=== PATIENT | female | born 1960 | race Caucasian/White ===

== ENCOUNTER 2023-08-31 01:43 | Day surgery (SDC) | payer OTHER, SELFPAY ==
[2023-08-20 11:02] VITALS: BMI 37.3
--- NOTE | 2023-08-28 09:30 | SUR.PREOP ---
Patient called regarding upcoming procedure. Message left on patient's voicemail regarding preop instructions, appointment times, and procedure prep.
--- NOTE | 2023-08-30 12:20 | PM.HPGS ---
History of Present Illness History of Present Illness Consent: Risks, benefits, and alternatives have been discussed and questions answered. Patient agrees to proceed with procedure. Chief complaint: dysphagia Narrative: Herlinda Benson is a 63 year old female Referred for endoscopy because of chronic dysphagia for solid food. Review of Systems Review of Systems: All systems reviewed & are unremarkable except as noted in HPI and below PMFSH Social History Social History Smoking status: Never smoker Substance use type: does not use Living arrangements: alone Meds Home Medications and Allergies Home Medications Medication Instructions Recorded Confirmed Type brexpiprazole 1 mg tablet (Rexulti) 1 mg PO DAILY 08/20/23 08/31/23 History budesonide 160 mcg-glycopyr 9 1 inh inhalation BID PRN Shortness 08/20/23 08/31/23 History mcg-formot 4.8 mcg/actuation HFA Of Breath inhaler (Breztri Aerosphere) levothyroxine 100 mcg tablet 100 mcg PO DAILY 08/20/23 08/31/23 History lisinopril 10 mg tablet 10 mg PO DAILY 08/20/23 08/31/23 History meloxicam 7.5 mg tablet 15 mg PO BID PRN Pain 08/20/23 08/31/23 History rizatriptan 10 mg disintegrating 10 mg PO DAILY 08/20/23 08/31/23 History tablet semaglutide (weight loss) 2.4 2.5 mg subcut WEEKLY 08/20/23 08/31/23 History mg/0.75 mL subcutaneous pen injector (Wegovy) trazodone 50 mg tablet 50 mg PO HS 08/20/23 08/31/23 History Allergies Allergy/AdvReac Type Severity Reaction Status Date / Time Sulfa (Sulfonamide Allergy Swelling Verified 08/31/23 11:56 Antibiotics) Exam Const: General: alert Orientation/consciousness: patient oriented x3 Resp: Auscultation: clear to auscultation bilaterally Cardio: Rhythm: regular rhythm GI: GI Palp: Yes Soft to palpation and No Tenderness to palpation present (GI) Neuro: General: patient oriented x3 Assessment and Plan Assessment and plan (1) Dysphagia: Code(s): R13.10 - Dysphagia, unspecified Status: Acute Assessment and Plan: EGD with possible biopsy or dilatation or cautery.
[2023-08-31 11:57] VITALS: BP 128/64; PULSE 93; RESP 16; TEMP 36.2; O2SAT 100
[2023-08-31] MEDS: LACTATED RINGERS 1,000 ML 150 ML IV CONT (12:00)
--- NOTE | 2023-08-31 12:56 | P.PNAN_ITS ---
Anes - Initial Pre Proc Eval Procedure: Operation Date: 08/31/23 13:00 Proposed Procedures p Esophagogastroduodenoscopy - Jacek Jacome MD Date/Time: 08/31/23 12:56 Surgeon: Jacek Jacome MD Pre Op Diagnosis: dysphagia Patient Data Age: 63 Gender: F Height: 1.6 m Weight: 97.2 kg Last Vital Signs Temp 97.2 F L 08/31/23 11:57 Pulse 93 08/31/23 11:57 Resp 16 08/31/23 11:57 BP 128/64 08/31/23 11:57 Pulse Ox 100 08/31/23 11:57 O2 Del Method Room Air 08/31/23 11:57 Allergies Allergy/AdvReac Type Severity Reaction Status Date / Time Sulfa (Sulfonamide Allergy Swelling Verified 08/31/23 11:56 Antibiotics) Home Medications Medication Instructions Recorded Confirmed Type brexpiprazole 1 mg tablet (Rexulti) 1 mg PO DAILY 08/20/23 08/31/23 History budesonide 160 mcg-glycopyr 9 1 inh inhalation BID PRN Shortness 08/20/23 08/31/23 History mcg-formot 4.8 mcg/actuation HFA Of Breath inhaler (Breztri Aerosphere) levothyroxine 100 mcg tablet 100 mcg PO DAILY 08/20/23 08/31/23 History lisinopril 10 mg tablet 10 mg PO DAILY 08/20/23 08/31/23 History meloxicam 7.5 mg tablet 15 mg PO BID PRN Pain 08/20/23 08/31/23 History rizatriptan 10 mg disintegrating 10 mg PO DAILY 08/20/23 08/31/23 History tablet semaglutide (weight loss) 2.4 2.5 mg subcut WEEKLY 08/20/23 08/31/23 History mg/0.75 mL subcutaneous pen injector (Stormy) trazodone 50 mg tablet 50 mg PO HS 08/20/23 08/31/23 History Patient hx anesthesia problems: none Family hx anesthesia problems: none Results Review: All pre-operative results and documents have been reviewed as part of the pre- operative evaluation. PMFSH Social History Social History Smoking status: Never smoker Substance use type: does not use Living arrangements: alone Anes - Eval Final PreProcedure Day of Procedure 08/31/23 12:56 Patient weight: obese Airway: Mallampati scale class II ASA classification: III Anesthesia type and monitoring: general GIVS and standard monitoring Results Review: All pre-operative results and documents have been reviewed as part of the pre- operative evaluation. Informed Consent: The patient's anesthetic plan and its attendant risks and benefits were discussed with the patient/family/POA. Questions were solicited and answers provided to the satisfaction of the patient/family/POA.
[2023-08-31] MEDS: BENZOCAINE (*SP) 60 ML SPRAY CAN (HURRICAINE) 1 SPRAY MUCOUS MEM (13:07)
[2023-08-31 13:16] VITALS: BP 124/78; PULSE 86; RESP 24; O2SAT 100
[2023-08-31 13:26] VITALS: BP 131/81; PULSE 77; RESP 19; O2SAT 100
[2023-08-31 13:36] VITALS: BP 137/81; PULSE 73; RESP 20; O2SAT 100
== END 2023-08-31 13:46 | disposition home or self-care (01) ==
PROVIDERS: PCP Internal Medicine; Visit Provider Internal Medicine Gastroenterology
PROC: 0DJ08ZZ Inspection of Upper Intestinal Tract, Via Natural or Artificial Opening Endoscopic (ICD-10-PCS; CPT 43235; principal; 2023-08-31 13:00)
DX: K20.0 Eosinophilic esophagitis (principal); K22.2 Esophageal obstruction; K44.9 Diaphragmatic hernia without obstruction or gangrene; Z79.85 Long-term (current) use of injectable non-insulin antidiabetic drugs; Z79.51 Long term (current) use of inhaled steroids; Z79.891 Long term (current) use of opiate analgesic; E66.9 Obesity, unspecified; Z68.38 Body mass index [BMI] 38.0-38.9, adult
CPT/HCPCS: 43239; 88305; J2704; J7120

== ENCOUNTER → 2023-10-05 10:50 | Outpatient (CLI) | payer OTHER, SELFPAY ==
--- NOTE | ~2023-10-05 | MR_ITS ---
MRI of the cervical spine Clinical History: Adenopathy Technique: Axial T2-weighted and gradient images, and sagittal T1-weighted, T2-weighted, and STIR dianne ges were acquired. Findings: No fracture identified. There is 3 mm retrolisthesis of C5 over C6. No suspicious bone janay ow signal abnormality identified. At C2-C3, there is no disc bulge or herniation. There is right facet arthropathy. No central canal st enosis, cord compression, or neural foraminal narrowing. At C3-C4, there is no significant disc bulge or herniation. There is mild bilateral facet arthropathy and possible minimal bilateral neural foraminal narrowing. No central canal stenosis or cord mike simon. At C4-C5, there is minimal disc osteophyte complex, without central canal stenosis or cord compressio n. Bilateral neural foramina are preserved. At C5-C6, there is moderate to advanced degenerative disc narrowing. Disc osteophyte complex results in mild canal stenosis without mary jane cord compression. There is bilateral neural foraminal narrowing. At C6-C7, there is minimal disc osteophyte complex. No central canal stenosis or cord compression. Th ere is bilateral neural foraminal narrowing. No abnormal signal seen in the spinal cord. Paravertebral soft tissues are unremarkable. Impression: Spondylosis at C5-C6. Mild spondylosis in the remainder of the cervical spine. 3 mm retrolisthesis of C5 over C6. Reviewed, dictated and finalized at [facility]. HOOP BENDER Impression: Spondylosis at C5-C6. Mild spondylosis in the remainder of the cervical spine. 3 mm retrolisthesis of C5 over C6.
== END ==
PROVIDERS: PCP Internal Medicine; Visit Provider Anesthesiology Pain Medicine
DX: M43.02 Spondylolysis, cervical region (principal)
CPT/HCPCS: 72141